=== PATIENT | female | born 1990 | race Caucasian/White ===

== ENCOUNTER 2023-01-21 08:58 | Outpatient (CLI) | payer BC, SELFPAY ==
--- NOTE | 2023-01-21 09:15 | CRLHL7_ITS ---
For Patients: As a result of the Century Cures Act, medical imaging exams and procedure reports are released immediately into your electronic medical record. You may view this report before your referring provider. If you have questions, please contact your health care provider. INDICATION: ABNORMAL UTERINE BLEEDING COMPARISON: none TECHNIQUE: 2D silva scale and color Doppler images were acquired of the pelvis using a transabdominal and transvaginal approach. FINDINGS: Sonographic images demonstrate a normal size and smooth outer contour of the uterus. Uterus measures 9.4 cm in length by 3.8 cm in AP diameter by 5.4 cm in transverse dimension. The myometrium has a heterogeneous echotexture. There is a submucosal heterogeneously hypoechoic uterine fibroid extending into the central endometrium measuring 2.2 x 2.0 x 2.0 cm. A right posterior fundal intramural fibroid is also present measuring 3.0 x 2.3 x 2.9 cm. The endometrial lining appears heterogeneous and measures 18 mm in composite thickness. The right ovary measures 3.5 x 1.9 x 2.6 cm in size and the left ovary measures 4.5 x 1.8 x 2.2 cm. The ovaries demonstrate normal arterial and venous blood flow on color Doppler analysis. There are no suspicious fluid collections within the cul-de-sac. IMPRESSION: Submucosal 2.2 cm fibroid is present extending into the central endometrium. The endometrium is heterogeneous and measures 1.8 cm. Dictated by Humberto Moncada MD @ 01/21/2023 9:43:58 AM (Electronically Signed)
== END 2023-01-21 08:59 | disposition home or self-care (01) ==
LOC: US 09:00
PROVIDERS: Visit Provider Obstetrics & Gynecology
DX: N93.9 Abnormal uterine and vaginal bleeding, unspecified (principal); D25.0 Submucous leiomyoma of uterus
CPT/HCPCS: 76830; 76856

== ENCOUNTER 2023-05-14 06:58 | Day surgery (SDC) | payer BC, SELFPAY ==
[2023-05-14 07:21] VITALS: BMI 35.1
[2023-05-14 07:27] VITALS: BP 130/78; PULSE 77; RESP 20; TEMP 36.7; O2SAT 99
[2023-05-14 07:32] LABS: Ur HCG Qualitative* Negative (Negative)
[2023-05-14 07:36] LABS: Hemoglobin* 12.4 gm/dL (12.0-16.0)
[2023-05-14] MEDS: SODIUM CHLORIDE 0.9 % (FLUSH) 10 ML SYRINGE IVF (07:41)
[2023-05-14] MEDS: LACTATED RINGERS 1000 ML 1,000 ML 100 ML IV (07:41)
[2023-05-14] MEDS: BUPIVACAINE 0.5% 30 ML INJECTION (08:20)
--- NOTE | 2023-05-14 09:10 | W.PM.H&PU ---
History & Physical Update History & Physical Update H&P Reviewed and patient assessed: The following changes are noted below H&P Updates: Has noted heavier bleeding for the past 1-1 1/2 week. Preop hemoglobin 12.4 and negative test.
--- NOTE | 2023-05-14 09:11 | W.PM.GYNPROC ---
Procedure Note Date of procedure: 05/14/23 Pre-op diagnosis: Abnormal uterine bleeding-leiomyoma Post-op diagnosis: same Procedure: Hysteroscopic dilation and curettage, myomectomy, placement of Mirena IUD. Anesthesia: MAC Complications: None Surgeon: Marie Chapin MD Estimated blood loss (mL): 30 IV fluids (mL): 600 Urine Output (mL): 100 Pathology: specimen obtained, sent to pathology (1. Endomcetrial curettings) Condition: stable Disposition: same day Findings: Pelvic: Normal external genitalia. Anteverted uterus of about 8cm. No adnexal masses. Speculum exam: Cervix looks slightly open with dark blood seen coming out/moderate in amount. Intrauterine cavity: Fibroid lesion occupying intrauterine cavity of about 2-3cm. This arises from the posterior uterine wall and does not seem to extend into the myometrium, type 0. There was a second lesion that looked like a fibroid in the posterior uterine wall closer to the right cornua, this did look to have more than 50% extension into the myometrium, type 1. Bilateral cornual openings seen. No other abnormalities noted. Procedure Description: Patient was taken to the OR were MAC anesthesia was administered without difficulty. She was placed in the dorsal lithotomy position with Anish type stirrups. An exam under anesthesia as described above. Patient was then prepared and draped in the normal sterile fashion. A bivalved speculum was inserted in the posterior aspect of the vagina. 0.5% Marcaine was injected at 2 and 11 o'clock a total of about 5mL utilized. A single-tooth tenaculum was used to grasp the anterior lip of the cervix. The uterus was carefully sounded to 8 cm. The cervical os was sequentially dilated to accommodate the 5 mm TrueClear hysteroscope using Hegar dilators. A 5 mm 30 degree TrueClear hysteroscope was introduced under direct visualization, and the uterus was distended with normal saline. Findings as above. Decision made to utilize the larger TrueClear hysteroscope to be able to utilize the dense tissue incisor blade. The cervix was then sequentially dilated up to 8mm utilizing Hegar dilators and the 7.2mm TruClear hysteroscope was inserted. I had some trouble with uterine distension-patient's MAP was -[phone] during surgery and I had to increase pressure on several occasions to maintain adequate distension of the intrauterine cavity always making sure to monitor my fluid deficit closely. This way I was able to perform myomectomy with the dense tissue incisor blade (type 0 fibroid). There was some bleeding noted from the myometrial base of the resection site. I decided to perform a gentle sharp curette and this assisted in hemostasis. I was also able to to complete endometrial curettings and shave the second fibroid previously described until pentecostal of a smooth and homogenous intrauterine cavity, this was performed with the soft tissue incisor blade. Hysteroscope removed under direct visualization. Mirena IUD was placed without difficulty, strings were cut and left about 3 -4 cm long. Tenaculum was removed from the cervix and good hemostasis was noted at puncture sites. Patient tolerated the procedure well. Instrument and sponge counts were correct x2. The patient was awakened from MAC anesthesia and taken to the recovery room in a stable condition. The patient will go home after recovering from anesthesia and meeting all the criteria for discharge. She was given instruction regarding follow-up visit in 2 weeks at [facility] and instructions for pain medication. Fluid deficit: 750mL A debrief was completed clarifying procedure performed, pathology specimens, EBL and answering any questions or concerns.
--- NOTE | 2023-05-14 09:14 | W.ANESCHARGE ---
Anesthesia Charges Start Date/Time Anesthesia Start Date: 05/14/23 Anesthesia Start Time: 08:01 Stop Date/Time Anesthesia Stop Date: 05/14/23 Anesthesia Stop Time: 09:14
[2023-05-14 09:15] VITALS: BP 114/71; PULSE 84; RESP 20; TEMP 36.5; O2SAT 93
[2023-05-14 09:30] VITALS: BP 99/58; PULSE 60; RESP 20; O2SAT 97
[2023-05-14] MEDS: ACETAMINOPHEN 500 MG TABLET 1000 MG PO (09:32)
[2023-05-14 10:00] VITALS: BP 120/69; PULSE 74; RESP 20; O2SAT 93
--- NOTE | 2023-05-14 10:01 | W.ANESCHARGE ---
Anesthesia Charges Start Date/Time Anesthesia Start Date: 05/14/23 Anesthesia Start Time: 08:01 Stop Date/Time Anesthesia Stop Date: 05/14/23 Anesthesia Stop Time: 09:14
== END 2023-05-14 10:30 | disposition home or self-care (01) ==
PROVIDERS: Visit Provider Obstetrics & Gynecology
PROC: 0UDB8ZZ Extraction of Endometrium, Via Natural or Artificial Opening Endoscopic (ICD-10-PCS; CPT 58558; principal; 2023-05-14 08:15)
DX: D25.0 Submucous leiomyoma of uterus (principal); N93.8 Other specified abnormal uterine and vaginal bleeding; Z30.430 Encounter for insertion of intrauterine contraceptive device
CPT/HCPCS: 58558; 58300; 00952; 36415; 81025; 85018; 88305; A9270; J0665; J1100; J1885; J2250; J2405; J2704; J3010; J7120; J7298